=== PATIENT | male | born 1995 | race Caucasian/White ===

== ENCOUNTER 2023-02-15 02:05 | Emergency (ER) | payer MEDICAID ==
[~2023-02-15] VITALS: Ht 172.7 cm; Wt 77.1 kg
[2023-02-15 02:14] VITALS: BP 123/71; PULSE 100; RESP 18; TEMP 97.2; O2SAT 97
[2023-02-15 03:09] VITALS: BP 123/71; PULSE 100; RESP 18; TEMP 97.2; O2SAT 97
== END 2023-02-15 03:09 ==
LOC: MED 02:05
DX: S60.811A Abrasion of right wrist, initial encounter (principal); F10.10 Alcohol abuse, uncomplicated; Z02.89 Encounter for other administrative examinations; V89.2XXA Person injured in unspecified motor-vehicle accident, traffic, initial encounter; Y93.89 Activity, other specified; Y92.410 Unspecified street and highway as the place of occurrence of the external cause; Y99.8 Other external cause status
CPT/HCPCS: 99283